=== PATIENT | male | born 1980 | race Caucasian/White ===

== ENCOUNTER 2017-04-07 04:38 | Inpatient (IN) | payer BC ==
[2017-04-07 04:38] VITALS: BMI 40.0
--- NOTE | 2017-04-07 04:57 | C.PDOC ---
History Of Present Illness Patient is a 37 year old male who is a transfer from [facility] for admission to detox. Patient has no physical complaints at this time. Chief Complaint (Nursing): Substance Abuse History Per: Patient History/Exam Limitations: no limitations Onset/Duration Of Symptoms: Hrs Suicide/Self Injury Attempted (Context): None Modifying Factor(s): None Severity: None Associated Symptoms: denies: Depression, Suicidal Thoughts, Suicidal Plan Involuntary Hold By: None Recent travel outside of the [place]: No Past Medical History Reviewed: Historical Data, Nursing Documentation, Vital Signs Vital Signs: Last Vital Signs Temp 98.5 F 04/07/17 04:42 Pulse 82 04/07/17 04:42 Resp 18 04/07/17 04:42 BP 135/90 04/07/17 04:42 Pulse Ox 98 04/07/17 04:57 - Medical History PMH: HTN Surgical History: No Surg Hx - [facility] Procedures APPLICATION OF SPLINT (07/09/05) DPT ADMINISTRATION (03/27/15) IMMOBILIZ/WOUND ATTN NEC (05/20/15) INJECT/INFUSE NEC (05/20/15) REMOV THERAPEUT DEV NEC (04/03/15) Family History: States: Unknown Family Hx - Social History Hx Alcohol Use: Yes Hx Substance Use: Yes - Immunization History Hx Tetanus Toxoid Vaccination: No Hx Influenza Vaccination: No Hx Pneumococcal Vaccination: No Review Of Systems Constitutional: Negative for: Fever, Chills Cardiovascular: Negative for: Chest Pain Respiratory: Negative for: Shortness of Breath Gastrointestinal: Negative for: Nausea, Vomiting, Diarrhea Physical Exam - Physical Exam Appears: Non-toxic, No Acute Distress Skin: Normal Color, Warm, Dry Head: Atraumatic, Normacephalic Oral Mucosa: Moist Chest: Symmetrical, No Tenderness Cardiovascular: Rhythm Regular, No Murmur Respiratory: Normal Breath Sounds, No Rales, No Rhonchi, No Wheezing Gastrointestinal/Abdominal: Soft, No Tenderness Neurological/Psych: Oriented x3, Normal Speech, Normal Cognition ED Course And Treatment O2 Sat by Pulse Oximetry: 98 (Room air) Pulse Ox Interpretation: Normal Disposition Discussed With : Heather Gonzales Doctor Will See Patient In The: Hospital Counseled Patient/Family Regarding: Diagnosis - Disposition Disposition: HOSPITALIZED Disposition Time: 04:56 Condition: STABLE - POA Present On Arrival: None - Clinical Impression Clinical Impression: Alcohol abuse with alcohol-induced disorder - Scribe Statement The provider has reviewed the documentation as recorded by the Scribe eDjon Jack All medical record entries made by the Damoniblia were at my direction and personally dictated by me. I have reviewed the chart and agree that the record accurately reflects my personal performance of the history, physical exam, medical decision making, and the department course for this patient. I have also personally directed, reviewed, and agree with the discharge instructions and disposition.
--- NOTE | 2017-04-07 11:09 | PCM.PSYCH ---
Initial Psychiatric Evaluation - Initial Psychiatric Evaluation Type of Admission: Voluntary Legal Status: Capacity Chief Complaint (in patient's own words): "I was withdrawing" History of Present Illness and Precipitating Events: The patient is seen, chart reviewed and case discussed. This is a 37-year-old male, with 2 children aged 9 and 14. He works for a [employer] and lives with his and children in [place]. He drinks more than a pint of alcohol every day and sometimes more. He states he started when he was 20 years old but increased in the last 5 years. He denies having seizures or DTs but describes significant withdrawal symptoms. Alcohol also affects his marriage, job and psychology. He feels down and anxious a lot. He also uses cocaine but minimizes use and claims only a few times. He used marijuana in the past but smokes cigarettes half pack per day currently. Past psych history: Denies Family psych history: Alcohol Medical history: Hypertension and swollen knee. Current Medications: Active Medications Generic Name Dose Route Start Last Admin Trade Name Freq PRN Reason Stop Dose Admin Chlordiazepoxide 25 mg 04/07/17 06:00 04/07/17 06:01 Librium PO 04/11/17 05:59 25 mg Q6 RUBEN Administration Taper Chlordiazepoxide 25 mg 04/07/17 05:53 04/07/17 10:54 Librium PO 25 mg Q4H PRN Administration Alcohol Withdrawal Clonidine HCl 0.1 mg 04/07/17 05:53 04/07/17 06:00 Catapres PO 0.1 mg Q8H PRN Administration Symptoms of alcohol withdrawl Folic Acid 1 mg 04/07/17 10:00 Folic Acid PO DAILY RUBEN Gabapentin 300 mg 04/07/17 10:00 Neurontin PO BID RUBEN Hydrochlorothiazide 12.5 mg 04/07/17 10:00 Microzide PO DAILY RUBEN Hydroxyzine HCl 50 mg 04/07/17 09:49 Atarax PO Q6H PRN Anxiety Ibuprofen 600 mg 04/07/17 09:49 Motrin Tab PO Q6H PRN Pain, moderate (4-7) Influenza Virus Vaccine 45 mcg 04/09/17 10:00 Afluria IM 04/09/17 10:01 .ONCE ONE Multivitamins 1 tab 04/07/17 10:00 Hexavitamin PO DAILY RUBEN Naltrexone HCl 50 mg 04/07/17 10:00 Revia PO DAILY RUBEN Nicotine 1 patch 04/07/17 10:00 Nicoderm Cq TD DAILY RUBEN Thiamine HCl 100 mg 04/07/17 10:00 Vitamin B1 Tab PO DAILY RUBEN Trazodone HCl 50 mg 04/07/17 09:40 Desyrel PO HS PRN Insomnia Past Psychiatric History - Past Psychiatric History Previous Treatment History: None Pertinent Medical Hx (Current Medical&Sleep Prob, Allergies): Allergies Allergy/AdvReac Type Severity Reaction Status Date / Time almond Allergy RASH Verified 02/10/17 09:15 No Known Home Med 04/07/17 Review of Systems - Psychiatric Psychiatric: Abnormal Sleep Pattern, Anxiety. absent: Depression, Hallucinations, Homicidal Ideation, Suicidal Ideation Mental Status Examination - Personal Presentation Personal Presentation: Looks older than stated age - Affect Affect: Constricted - Motor Activity Motor Activity: Calm - Reliability in Providing Information Reliability in Providing Information: Good - Speech Speech: Organized - Mood Mood: Anxious - Formal Thought Process Formal Thought Process: No Impairment - Cognitive Functions Orientation: Person, Place, Situation, Time Sensorium: Alert Attention/Concentration: Attentive Estimate of Intelligence: Average Judgement: Intact, as evidence by: Insight regarding need for hospitalization Memory: Recent intact, as evidence by: Ability to recall events of the day, Remote intact, as evidenced by: Abilit to recall sig. life events - Risk Risk: Withdrawal, Diminished functioning - Limitations Limitations: Other DSM 5 DX - DSM 5 DSM 5 Diagnosis: Alcohol withdrawal Alcohol use d/o - severe Cocaine use - unspecified Tobacco use d/o - moderate - Recommended/Plan of Treatment Treatment Recommendations and Plan of Treatment: Librium detox Gabapentin for augmentation As needed meds and vitamins Attend groups and activities AZ for abstinence and CBT for relapse prevention Support and psychoeducation Consider and encourage MAT Refer to after care HCTZ for HTN Motrin prn for pain AZ and Patch for tobacco AZ for cocaine 33 min Projected ELOS: 4-5 days Prognosis: Good w treatment Discharge Plan and Discharge Criteria: No wdw sxs Refer to IOP and Naltrexone - Smoking Cessation Smoking Cessation Initiated: Yes
[2017-04-07] MEDS: Multiple Vitamins Tab PO SCH (12:15)
[2017-04-08] MEDS: Multiple Vitamins Tab PO SCH (09:49)
--- NOTE | 2017-04-08 14:43 | PCM.PYCHPN ---
Psychiatric Progress Note - Psychiatric Progress Note Patient seen today, length of contact: 18 min Patient Chief Complaint: "I was withdrawing" Problems Identified/Issues Discussed: The pt is seen, chart reviewed, case discussed with staff. Support given, CBT and AZ used briefly No new symptoms reported, improving slowly and needs some more time No SEs from medications, risks discussed. After care discussed Medication Change: Yes (detox changes daily) Medical Record Reviewed: Yes Mental Status Examination - Cognitive Function Orientation: Person, Place, Situation, Time Memory: Intact Attention: WNL Concentration: Poor Association: WNL Fund of Knowledge: WNL - Mood Mood: Anxious - Affect Affect: Constricted - Speech Speech: Appropriate - Formal Thought Process Formal Thought Process: No Impairment - Suicidal Ideation Suicidal Ideation: No - Homicidal Ideation Homicidal Ideation: No Goal/Treatment Plan - Goal/Treatment Plan Need for Continued Stay: Discharge may exacerbated symptoms, Severe functional impairment Progress Toward Problem(s) and Goals/Treatment Plan: Librium detox Gabapentin for augmentation As needed meds and vitamins Attend groups and activities AZ for abstinence and CBT for relapse prevention Support and psychoeducation Consider and encourage MAT Refer to after care HCTZ for HTN Motrin prn for pain AZ and Patch for tobacco AZ for cocaine
[2017-04-09] MEDS: Multiple Vitamins Tab PO SCH (09:04)
[2017-04-09] MEDS ORDERED: Influenza Virus Vaccine (Afluria Inactive dont use ) IM ONE (10:00)
--- NOTE | 2017-04-09 11:19 | PCM.PYCHPN ---
Psychiatric Progress Note - Psychiatric Progress Note Patient seen today, length of contact: 18 min Patient Chief Complaint: I am feeling better Problems Identified/Issues Discussed: Patient seen and evaluated, chart reviewed and discussed with the nurse. The patient reports improvement in his mood and improvement in the withdrawal symptoms. However he still reports headaches, anxiety, and sweating. He is tolerating the detox protocol medications and denies any feelings of hopelessness or helplessness. He denies any suicidal ideation or homicidal ideation. He denies any side effects of the medications. Supportive therapy and psychoeducation were given. Medication Change: Yes (Librium taper) Medical Record Reviewed: Yes Mental Status Examination - Cognitive Function Orientation: Person, Place, Situation, Time Memory: Intact Attention: WNL Concentration: Poor Association: WNL Fund of Knowledge: Poor - Mood Mood: Anxious - Affect Affect: Constricted - Speech Speech: Soft - Formal Thought Process Formal Thought Process: No Impairment - Suicidal Ideation Suicidal Ideation: No - Homicidal Ideation Homicidal Ideation: No Goal/Treatment Plan - Goal/Treatment Plan Need for Continued Stay: Discharge may exacerbated symptoms Progress Toward Problem(s) and Goals/Treatment Plan: Alcohol withdrawal Alcohol use d/o - severe Cocaine use - unspecified Tobacco use d/o - moderate Librium detox Gabapentin for augmentation As needed meds and vitamins Attend groups and activities MT for abstinence and CBT for relapse prevention Support and psychoeducation Consider and encourage MAT Refer to after care HCTZ for HTN Motrin prn for pain MT and Patch for tobacco MT for cocaine - Smoking Cessation Smoking Cessation Initiated: No
[2017-04-10] MEDS: Multiple Vitamins Tab PO SCH (09:12)
[2017-04-10 09:23] VITALS: RESP 20; O2SAT 99
[2017-04-10 09:24] VITALS: BP 127/89; PULSE 100; TEMP 98.2
--- NOTE | 2017-04-10 09:53 | PCM.PYCHDC ---
Mental Status Examination - Mental Status Examination Orientation: Person, Place, Situation, Time Memory: Intact Mood: Neutral Affect: Constricted Speech: Soft Attention: WNL Concentration: WNL Association: WNL Fund of Knowledge: WNL Formal Thought Process: No Impairment Description of patient's judgement and insight: good, fair Psychotic Thoughts and Behaviors: denies any AVH Suicidal Ideation: No Current Homicidal Ideation?: No Discharge Summary - Discharge Note Reason for Hospitalization: The patient is seen, chart reviewed and case discussed. This is a 37-year-old male, with 2 children aged 9 and 14. He works for a [employer] company and lives with his and children in [place]. He drinks more than a pint of alcohol every day and sometimes more. He states he started when he was 20 years old but increased in the last 5 years. He denies having seizures or DTs but describes significant withdrawal symptoms. Alcohol also affects his marriage, job and psychology. He feels down and anxious a lot. He also uses cocaine but minimizes use and claims only a few times. He used marijuana in the past but smokes cigarettes half pack per day currently. Past psych history: Denies Consultations:: List each consultation separately and include: 1. Reason for request. 2. Findings. 3. Follow-up Summary of Hospital Course include:: 1. Description of specific treatment plan utilized for patients during their course of treatmen. 2. Summarize the time- course for resolution of acute symptoms and/or regressed behaviors. 3. Describe issues identified and worked on during hospitalization. 4. Describe medication utilized. 5. Describe medical problems identified and treated. 6. Reassessment of suicide risk Summary of Hospital Course: During the course of his stay, patient (pt) started progressively improving and he no longer remained anxious and irritable. He tolerated the withdrawal protocol very well. He didnt have any shakes, sweating, tremors or cramps or any other withdrawal symptoms upon discharge. He started attending groups and meetings and started socializing. He denied any feelings of hopelessness, helplessness, and worthlessness, denied any problem with the sleep or appetite, denied suicidal ideation or homicidal ideation. Pt denied any auditory or visual hallucinations. Patient remained calm and cooperative and remained compliant with the medications. Patient tolerated the detox medications very well and denied any side effects. He will follow up with [facility]. - Final Diagnosis (DSM 5) Condition upon Discharge: STABLE DSM 5: Alcohol withdrawal Alcohol use d/o - severe Cocaine use - unspecified Tobacco use d/o - moderate Disposition: HOME/ ROUTINE Follow-up Treatment Plan: Education: Pt was educated and counseled about the risks and benefits of taking and not taking medications. Pt was educated and counseled about the risks of drinking and abusing drugs. Pt was educated and counseled to go to the ER or call 911 if pt develop suicidal ideation or homicidal ideation, worsening of symptoms or severe side effects of the meds. Prescriptions/Medication Reconciliation: amLODIPine [Norvasc] 5 mg PO DAILY #30 tab Gabapentin [Neurontin] 300 mg PO BID #60 cap Naltrexone [Revia] 50 mg PO DAILY #30 tab traZODone [Desyrel] 50 mg PO HS PRN #30 tab PRN Reason: Insomnia - Smoking Cessation Smoking Cessation Medication prescribed: No - Antipsychotic Medications Pt discharged on 2 or more routine antipsychotic medications: No
== END 2017-04-10 10:00 | disposition home or self-care (01) | DRG 895 ==
LOC: C.ER 04:38 → C.7D 04:57
PROVIDERS: ADMIT Psychiatry & Neurology Psychiatry; ATTEND Psychiatry & Neurology Psychiatry
PROC: HZ2ZZZZ Detoxification Services for Substance Abuse Treatment (ICD-10-PCS; principal; 2017-04-07)
PROC: HZ52ZZZ Individual Psychotherapy for Substance Abuse Treatment, Cognitive-Behavioral (ICD-10-PCS; 2017-04-07)
PROC: HZ42ZZZ Group Counseling for Substance Abuse Treatment, Cognitive-Behavioral (ICD-10-PCS; 2017-04-07)
PROC: HZ59ZZZ Individual Psychotherapy for Substance Abuse Treatment, Supportive (ICD-10-PCS; 2017-04-07)
PROC: HZ56ZZZ Individual Psychotherapy for Substance Abuse Treatment, Psychoeducation (ICD-10-PCS; 2017-04-07)
PROC: HZ46ZZZ Group Counseling for Substance Abuse Treatment, Psychoeducation (ICD-10-PCS; 2017-04-07)
DX: F10.230 Alcohol dependence with withdrawal, uncomplicated (principal); R45.851 Suicidal ideations; F32.9 Major depressive disorder, single episode, unspecified; I10 Essential (primary) hypertension; F17.210 Nicotine dependence, cigarettes, uncomplicated; F14.10 Cocaine abuse, uncomplicated; M25.469 Effusion, unspecified knee; F41.9 Anxiety disorder, unspecified; G47.00 Insomnia, unspecified